=== PATIENT | female | born 1980 | race Asian ===

== ENCOUNTER → 2018-07-21 | Outpatient (CLI) | payer BC ==
[~2018-07-21] MED LIST: IBUP800 PO; OXYACE5T PO
== END | disposition home or self-care (01) ==
LOC: LAB SHORT 13:49 → LAB 13:49
PROVIDERS: Hospitalist
DX: Z12.4 Encounter for screening for malignant neoplasm of cervix (principal)
CPT/HCPCS: G0145

== ENCOUNTER 2019-07-14 07:45 | Inpatient (IN) | payer BC ==
[~2019-07-14] VITALS: Ht 157.5 cm; Wt 77.0 kg
[2019-07-14] MEDS ORDERED: PRENATAL TABLE1 EAC2 PO (08:10)
[2019-07-14 08:30] LABS: BASOPHILS ABSOLUTE AUTO 0.04 K/mm3 (0.00-0.23); BASOPHILS PERCENT AUTO 0 % (0-2); EOSINOPHILS ABSOLUTE AUTO 0.17 K/mm3 (0.00-0.68); EOSINOPHILS PERCENT AUTO 2 % (0-6); Hematocrit 38.3 % (33.0-51.0); Hemoglobin 12.6 g/dL (11.5-16.0); IMMATURE GRAN ABSOLUTE AUTO 0.14 K/mm3 (0.00-0.10); IMMATURE GRAN PERCENT AUTO 2 % (0-1); LYMPHOCYTES ABSOLUTE AUTO 3.19 K/mm3 (0.84-5.20); LYMPHOCYTES PERCENT AUTO 33 % (21-46); MONOCYTES ABSOLUTE AUTO 0.87 K/mm3 (0.16-1.47); MONOCYTES PERCENT AUTO 9 % (4-13); Mean Corpuscular HGB 30.7 pg (26.0-34.0); Mean Corpuscular HGB Conc 32.9 g/dL (31.5-36.5); Mean Corpuscular Volume 93 fL (80-100); Mean Platelet Volume 10.2 fL (9.1-12.4); NEUTROPHILS ABSOLUTE AUTO 5.18 K/mm3 (1.96-9.15); NEUTROPHILS PERCENT AUTO 54 % (41-73); Platelet Count 232 K/mm3 (150-400); RDW Coefficient Variation 13.5 % (11.7-14.2); White Blood Cell Count 9.59 K/mm3 (4.00-11.30)
[2019-07-14 11:43] LABS: PCO2 Cord - Arterial 62.3 mmHg (40-50)
--- NOTE | 2019-07-14 11:43 | NUR ---
07/14/19 1143 Bozena Best 1128 delivery viable female infant, weight 7# 7oz 3380gm, head 13 inches, chest 13 inches, length 20 inches, apgars 9/9 placenta 685gm, umbilical cord segement sent for cord gases with RT, umbilical cord blood collected for type and rh, right and left fallopian tube segments collected and sent to pathology
[2019-07-14 11:44] LABS: PCO2 Cord - Venous 46.4 mmHg (40-50); pH Umbilical Cord - Venous 7.27 (7.26-7.35)
[2019-07-14 11:45] LABS: PO2 Cord - Venous 25.3 mmHg (28-32)
--- NOTE | 2019-07-14 15:02 | NUR ---
ASSIST RN REPORTS BABY WILL SUCK I=ON FINGER BUT WILLNOT LATCH ON MOM . DEMOSTRATED LAID BACK FEEDING POSISTION CHIN TO BREAST. BABY LATCHED WELL BUT WOULD NOT SUCK. FO DRIPPED ON NIPPLE AND BABY STARTED SUCKING WELL.DEMONSTRATED SYRINGE AND FO TO FOB. DISCUSSED CONS OF STARTING OUT SUPP WITH BOTTLE UNTIL IS WELL ESTABLISHED.
--- NOTE | 2019-07-14 16:15 | NUR ---
RN CALLED [facility] TO OBTAIN GBS STATUS.IT IS STILL PENDING WILL HAVE RESULTS IN 24 HRS. RN ALSO MONITORING PT URINE COLOR. IT WAS RONAN RED URINE DRAINAGE IN THE OR. RN EMPTIED CARIAS, 800CC OUT OF BLOODY RED COLOR. WILL CONTINUE TO RE-ASSES COLOR
[2019-07-15 05:42] LABS: BASOPHILS ABSOLUTE AUTO 0.04 K/mm3 (0.00-0.23); BASOPHILS PERCENT AUTO 0 % (0-2); EOSINOPHILS ABSOLUTE AUTO 0.05 K/mm3 (0.00-0.68); EOSINOPHILS PERCENT AUTO 0 % (0-6); Hematocrit 25.7 % (33.0-51.0); Hemoglobin 8.4 g/dL (11.5-16.0); IMMATURE GRAN ABSOLUTE AUTO 0.09 K/mm3 (0.00-0.10); IMMATURE GRAN PERCENT AUTO 1 % (0-1); LYMPHOCYTES ABSOLUTE AUTO 1.73 K/mm3 (0.84-5.20); LYMPHOCYTES PERCENT AUTO 14 % (21-46); MONOCYTES PERCENT AUTO 7 % (4-13); Mean Corpuscular HGB 31.1 pg (26.0-34.0); Mean Corpuscular HGB Conc 32.7 g/dL (31.5-36.5); Mean Corpuscular Volume 95 fL (80-100); Mean Platelet Volume 10.1 fL (9.1-12.4); NEUTROPHILS ABSOLUTE AUTO 9.39 K/mm3 (1.96-9.15); NEUTROPHILS PERCENT AUTO 77 % (41-73); Platelet Count 164 K/mm3 (150-400); RDW Coefficient Variation 14.1 % (11.7-14.2); RDW Standard Deviation 48.2 fL (35.1-46.3)
--- NOTE | 2019-07-15 13:00 | NUR ---
PT REQUESTED HER IV BE TAKEN OUT. I REVIEWED HER LABS WHICH WERE LOW BUT NOT NEEDING TO BE TREATED WITH PRBC AT THIS TIME SO I DC'D HER IV. AFTER DC'ING HER IV, I REALIZED SHE STILL HAD DOSES OF IV ABX ORDERED. I CALLED THE [employer] EVENT MARKETING MANAGER TO SEE IF THE PATIENT NEEDED FURTHER ABX SHE WAS TREATED WITH DOSES BEFORE HER C/S AND 2 DOSES AFTER. SHE TOLD ME TO CALL DR. JONESLY SINCE HE WAS THE SURGEON. I CALLED AND LEFT MESSAGE FOR HIM TO CALL ME BACK. CHARTED NOT GIVEN ON ABX DUE TO NO IV ACCESS.
--- NOTE | 2019-07-15 19:03 | NUR ---
REPORT TO PHOENIX COLEMAN RN
--- NOTE | 2019-07-16 08:05 | NUR ---
PT REPORTS NO BLOOD IN URINE.
--- NOTE | 2019-07-16 10:38 | NUR ---
RN ROUNDED TO HELP W/ . INSTRUCT/DEMO WIDENING LATCH, CORRECT POSITIONING AND NIPPLE SHAPE AFTER FEEDS. PT REPORTS NB WILL FEED FOR A "LITTLE BIT" AND THEN STOP, RN INSTRUCTED PT TO UNSWADDLE NB AND PLACE SKIN TO SKIN TO HELP ACHIEVE DESIRED FEED TIMES. PT SUPPLEMENTING AFTER FEEDS W/ FORMULA. INSTRUCT/REVIEWED BOOKLET AND BROCHURE ON WHAT TO EXPECT DURING THE FIRST WEEK W/ AND CHANGES IN NB. PT VERBALIZED UNDERSTANDING, DENIES ANY FURTHER QUESTIONS OR CONCERNS.
[2019-07-16] MEDS ORDERED: Percocet 5-3251 EACH PO (12:17)
[2019-07-16] MEDS ORDERED: IBUP800 PO (12:17)
== END 2019-07-16 14:45 | disposition home or self-care (01) | DRG 785 ==
LOC: OBS 07:45 → BC 07:46 → OBS 07:56 → BC 07:58
PROVIDERS: ADMIT Obstetrics & Gynecology
PROC: 10D00Z1 Extraction of Products of Conception, Low, Open Approach (ICD-10-PCS; principal; 2019-07-14 10:30)
PROC: 0UT70ZZ Resection of Bilateral Fallopian Tubes, Open Approach (ICD-10-PCS; 2019-07-14 10:30)
DX: O34.211 Maternal care for low transverse scar from previous cesarean delivery (principal); O62.1 Secondary uterine inertia; Z37.0 Single live birth; Z3A.37 37 weeks gestation of pregnancy; O69.81X0 Labor and delivery complicated by cord around neck, without compression, not applicable or unspecified
CPT/HCPCS: 36415; 82803; 85025; 86850; 86900; 86901; J0690; J1885; J2210; J2370; J2590; J2765; J3010; J7120